=== PATIENT | female | born 1960 | race Caucasian/White ===

== ENCOUNTER 2020-12-16 09:06 | Outpatient (CLI) | payer OTHER | END 2020-12-16 09:07 | disposition home or self-care (01) | LOC: CSHCT 09:06 | PROVIDERS: ATTEND Student in an Organized Health Care Education/Training Program | DX: J32.9 Chronic sinusitis, unspecified (principal); J32.0 Chronic maxillary sinusitis; T85.628A Displacement of other specified internal prosthetic devices, implants and grafts, initial encounter ==

== ENCOUNTER 2021-03-25 10:11 | Emergency (ER) | payer OTHER ==
[2021-03-25] MEDS ORDERED: Morphine 4 MG/ML VIAL ONE (11:04)
[2021-03-25 11:40] LABS: #Eosinphils 0.1 10x3/uL (0.0-0.5); #Monocytes 0.3 10x3/uL (0.0-1.1); %Basophils 0.4 % (0.0-2.0); %Lymphocytes 34.2 % (18.0-47.0); %Monocytes 5.6 % (0.0-10.0); %Neutrophils 58.6 % (40.0-75.0); Hemoglobin 15.2 g/dL (12.0-15.5); Mean Corpuscular HGB CONC 35.2 g/dL (32.0-36.0); Mean Corpuscular Hemoglobin 32.6 pg (27.0-33.0); Mean Corpuscular Volume 92.7 fl (81.6-98.3); Mean Platelet Volume 10.4 fl (7.4-10.4); RBC Distribution Width 13.2 % (11.5-14.5); Red Blood Cell (RBC) Count 4.66 10x6/uL (3.90-5.03)
[2021-03-25 11:43] LABS: Platelet Count 153 10x3/uL (150-450)
[2021-03-25 11:57] LABS: Anion Gap 15 mmol/L (10-20); BUN (Urea Nitrogen) 6 mg/dL (9.8-20.1); Calc. Creatinine Clearance 0 mL/min (70-130); Carbon Dioxide 23 mmol/L (23-31); Chloride 106 mmol/L (98-107); Glucose 95 mg/dL (80-115); Sodium 140 mmol/L (136-145)
== END 2021-03-25 13:20 | disposition home or self-care (01) ==
LOC: CSHERS 10:11
DX: S89.91XA Unspecified injury of right lower leg, initial encounter (principal); X50.9XXA Other and unspecified overexertion or strenuous movements or postures, initial encounter
CPT/HCPCS: 80048; 85025; 96372; J2270

== ENCOUNTER 2022-02-05 14:26 | Outpatient (CLI) | payer OTHER | END 2022-02-05 14:27 | disposition home or self-care (01) | LOC: CSHMAMMO 14:26 | PROVIDERS: ATTEND Nurse Practitioner | DX: Z12.31 Encounter for screening mammogram for malignant neoplasm of breast (principal) | CPT/HCPCS: 77063; 77067 ==